=== PATIENT | female | born 1980 | race Caucasian/White ===

== ENCOUNTER → 2018-01-14 | Outpatient (CLI) | payer BC ==
[2018-01-14 16:57] LABS: ALBUMIN 4.2 gm/dL (3.5-5.0); BILIRUBIN,TOTAL 0.4 mg/dL (0.0-1.0); CALCIUM 8.9 mg/dL (8.4-10.2); CREATININE, serum 0.63 mg/dL (0.52-1.25); POTASSIUM 4.6 mmol/L (3.4-5.0); TOTAL PROTEIN 8.1 gm/dL (6.4-8.2)
[2018-01-14 17:26] LABS: HIV 1/2 Antibodies Non-Reactive; HIV-1p24 Antigen Non-Reactive
[2018-01-14 17:27] LABS: THYROID STIMULATING HORMONE 0.567 uIU/mL (0.465-4.680)
[2018-01-15 00:06] LABS: HEPATITIS C VIRUS ANTIBODY Negative (Negative)
[2018-01-15 00:52] LABS: RPR (VDRL) Negative (Negative)
== END ==
LOC: COL.LAB 16:45
PROVIDERS: Family Medicine
DX: G62.9 Polyneuropathy, unspecified (principal)

== ENCOUNTER → 2018-02-10 | Outpatient (CLI) | payer BC | LOC: COL.RAD 12:04 | DX: M50.222 Other cervical disc displacement at C5-C6 level (principal) | CPT/HCPCS: A9585 ==

== ENCOUNTER → 2018-03-10 | Outpatient (CLI) | payer BC ==
[2018-03-10 17:40] LABS: COLLECTION METHOD CLEAN CATCH
[2018-03-10 17:55] LABS: HEMOGLOBIN 11.1 g/dl (12.5-16.0); MEAN CELL VOLUME 83 fl (80.0-100.0); MEAN CORPUSCULAR HEMOGLOBIN 25 pg (27.0-31.0); MEAN CORPUSCULAR HGB CONC 31 g/dl (33.0-37.0); MUCOUS Present /lpf; PH 6 (5-8); PLATELET COUNT 290 K/mm3 (130-400); RED BLOOD COUNT 4.37 M/mm3 (4.10-5.30); REDCELL DISTRIBUTION WIDTH-CV 15.2 % (11.5-14.5); URINE APPEARANCE Hazy; URINE BACTERIA Rare /hpf; URINE BILIRUBIN Negative (NEGATIVE); URINE BLOOD 1+ (NEGATIVE); URINE COLOR Yellow; URINE GLUCOSE Negative (NEGATIVE); URINE KETONE Negative (NEGATIVE); URINE LEUKOCYTE ESTERASE 2+ (NEGATIVE); URINE NITRATE Negative (NEGATIVE); URINE PROTEIN(semi-quant) Negative (NEGATIVE); URINE UROBILINOGEN Negative (NEGATIVE)
[2018-03-10 18:00] LABS: ALBUMIN 4.2 gm/dL (3.5-5.0); BILIRUBIN,TOTAL 0.4 mg/dL (0.0-1.0); CALCIUM 9.2 mg/dL (8.4-10.2); CREATININE, serum 0.64 mg/dL (0.52-1.25); POTASSIUM 4.2 mmol/L (3.4-5.0); TOTAL PROTEIN 8.3 gm/dL (6.4-8.2)
[2018-03-10 18:08] LABS: HEMATOCRIT 36.1 % (37.0-47.0)
== END ==
LOC: ZCOL.LAB 16:28
PROVIDERS: Family Medicine
DX: Z01.812 Encounter for preprocedural laboratory examination (principal)

== ENCOUNTER → 2018-05-27 | Outpatient (CLI) | payer BC | LOC: COL.RAD 09:00 | DX: R20.2 Paresthesia of skin (principal); Z98.1 Arthrodesis status ==

== ENCOUNTER → 2020-06-26 | Outpatient (CLI) | payer OTHER | LOC: COL.CARD 11:37 | DX: R00.2 Palpitations (principal) ==